=== PATIENT | female | born 1995 ===

== ENCOUNTER 2024-06-07 11:33 | Day surgery (SDC) | payer OTHER ==
[~2024-06-07] VITALS: Ht 162.6 cm; Wt 53.4 kg
[~2024-06-07 11:33] MED LIST: Lactated Ringer's 1,000 ML IV ONE; propofoL 50 ML IV ONE
[2024-06-07] MEDS ORDERED: Lactated Ringer's 1,000 ML IV ONE (13:01)
== END 2024-06-07 13:52 | disposition home or self-care (01) ==
LOC: ORSCSDS 11:33
PROVIDERS: Specialist
PROC: 0DB98ZX Excision of Duodenum, Via Natural or Artificial Opening Endoscopic, Diagnostic (ICD-10-PCS; principal; 2024-06-07 13:15)
PROC: 0DB58ZX Excision of Esophagus, Via Natural or Artificial Opening Endoscopic, Diagnostic (ICD-10-PCS; principal; 2024-06-07 13:15)
PROC: 0DB68ZX Excision of Stomach, Via Natural or Artificial Opening Endoscopic, Diagnostic (ICD-10-PCS; principal; 2024-06-07 13:15)
DX: R10.84 Generalized abdominal pain (principal); R14.0 Abdominal distension (gaseous); R11.2 Nausea with vomiting, unspecified; R63.4 Abnormal weight loss; K44.9 Diaphragmatic hernia without obstruction or gangrene; Z80.0 Family history of malignant neoplasm of digestive organs; Z79.899 Other long term (current) drug therapy
CPT/HCPCS: 88305; 88342; J2704; J7120